=== PATIENT | male | born 1945 | race Caucasian/White ===

== ENCOUNTER 2016-11-07 20:08 | Emergency (ER) | payer OTHER ==
[~2016-11-07] VITALS: Ht 180.3 cm; Wt 95.1 kg
[~2016-11-07 20:08] MED LIST: CIPRO500 MG PO; METFORMIN HCL1000 MG PO; MULTIVITAMIN1 EAC2 PO; NOVOLIN N100 UNITS/ SC; PEN-VEE K,VEET500 MG PO; PRAVASTATIN SOD80 MG PO; RELION GLUCOSE PO; ST. JOSEPH ASPI81 MG PO
[2016-11-07 20:19] VITALS: BP 135/69
[2016-11-07 20:45] LABS: HEMATOCRIT 35.8 % (38.0-50.0); MCH 31.6 PG (29.0-34.0); MCHC 32.4 G/DL (30.0-36.0); MCV 97.5 FL (86-99); MEAN PLAT.VOLUME 10.5 uM^3 (9.0-12.4); PLATELET COUNT 152 K/uL (156-360); RBC DIS.WIDTH-CV 13.1 % (11.8-14.6); RBC DIS.WIDTH-SD 46.5 % (39-53); RED BLOOD COUNT 3.67 M/uL (4.00-5.50)
[2016-11-07 20:47] LABS: WHITE BLOOD COUNT 10.4 K/uL (4.1-10.2)
[2016-11-07 20:55] LABS: CHLORIDE 99 mEq/L (99-109); POTASSIUM 4.9 mEq/L (3.7-5.4); SODIUM 135 mEq/L (136-147)
[2016-11-07 20:56] LABS: GLUCOSE 317 mg/dL (70-99)
[2016-11-07 20:58] LABS: ANION GAP 14 MEQ/L (2-14)
[2016-11-07 21:00] LABS: GFR ESTIMATE (CALCULATED) 58 mL/min/
[2016-11-07 21:01] LABS: UREA NITROGEN (BUN) 15 mg/dL (9-23)
[2016-11-07] MEDS ORDERED: DIPROSONE 0.05%15 GM TP (21:53)
== END 2016-11-07 22:08 | disposition home or self-care (01) ==
LOC: EME 20:08
PROVIDERS: Emergency Medicine
DX: S30.811A Abrasion of abdominal wall, initial encounter (principal); L30.9 Dermatitis, unspecified; H91.3 Deaf nonspeaking, not elsewhere classified
CPT/HCPCS: 80048; 85027; 86900; 86901; 99281; 99284

== ENCOUNTER 2016-12-08 20:56 | Inpatient (IN) | payer OTHER ==
[~2016-12-08] VITALS: Ht 182.9 cm; Wt 89.6 kg
[~2016-12-08 20:56] MED LIST changes: +DIPROSONE 0.05%15 GM TP
[2016-12-08 23:07] LABS: MCHC 32.4 G/DL (30.0-36.0); MCV 95.8 FL (86-99); RBC DIS.WIDTH-CV 13.2 % (11.8-14.6); RBC DIS.WIDTH-SD 47.2 % (39-53); RED BLOOD COUNT 3.55 M/uL (4.00-5.50); WHITE BLOOD COUNT 6.9 K/uL (4.1-10.2)
[2016-12-08 23:18] LABS: CHLORIDE 97 mEq/L (99-109); POTASSIUM 4.7 mEq/L (3.7-5.4); SODIUM 133 mEq/L (136-147)
[2016-12-08 23:20] LABS: GLUCOSE 247 mg/dL (70-99)
[2016-12-08 23:21] LABS: ANION GAP 11 MEQ/L (2-14)
[2016-12-08 23:24] LABS: GFR ESTIMATE (CALCULATED) > 59 mL/min/
[2016-12-08 23:25] LABS: UREA NITROGEN (BUN) 21 mg/dL (9-23)
[2016-12-08 23:28] LABS: TROP-I INTERPRETATION NEGATIVE; TROPONIN-I < 0.01 ng/mL (0.0-0.30)
[2016-12-08 23:41] LABS: INFLUENZA A VIRAL ANTIGEN NEGATIVE; INFLUENZA B VIRAL ANTIGEN NEGATIVE
[2016-12-08 23:46] LABS: ABS NEUTROPHIL COUNT 4.8; BAND NEUTROPHILS 12.4 % (0-8.0); EOSINOPHIL ABS CT 0; INSTRUMENT ABS NEUTROPHIL CT 4.6 K/uL; LYMPHOCYTES 17.7 % (15.0-45.0); MEAN PLAT.VOLUME 10.2 uM^3 (9.0-12.4); NUCLEATED RBC'S 0.9; PLATELET COUNT 78 K/uL (156-360); SEG.NEUTROPHILS 57.5 % (46.0-76.0)
[2016-12-09] VITALS (8 sets, daily range): BP systolic 70–116; BP diastolic 40–65
[2016-12-09 01:18] LABS: HDL CHOLESTEROL 34 MG/DL (Desirable>=40); LDL CHOLESTEROL 66 mg/dL (Desirable<100); NON-HDL CHOLESTEROL 97 mg/dL (Desirable<160); TOTAL CHOLESTEROL 131 mg/dL (Desirable<200); TRIGLYCERIDES 155 MG/DL (Normal: <150)
[2016-12-09 05:03] LABS: ADD MIUA? YES; BILIRUBIN NEGATIVE; BLOOD MODERATE; COLOR YELLOW ((YELLOW)); GLUCOSE (STRIP) >=500; KETONES 80; LEUKOCYTES TRACE; NITRITE NEGATIVE; PROTEIN (STRIP) 30; UROBILINOGEN 0.2 MG/DL (0.2-1.0)
[2016-12-09 05:08] LABS: BACTERIA NONE SEEN /HPF; EPITHELIAL CELLS NONE SEEN /HPF; MUCUS NONE SEEN /LPF; RED BLOOD CELLS 15-20 /HPF (0-5); UCUL ADDED? NO; WHITE BLOOD CELLS 15-20 /HPF (0-5)
[2016-12-09 05:20] LABS: SPECIFIC GRAVITY 1.072 (1.000-1.030)
[2016-12-09 05:22] LABS: BICARBONATE 25.1 mEq/L (22-26); CARBOXY HGB 1.3 % (0-5); METHEMOGLOBIN 0.7 % (0-1.5); PCO2 33 mm Hg (35-45); PO2 58 mm Hg (80-100); SITE RR; pH 7.49 (7.35-7.45)
[2016-12-09 05:23] LABS: COMMENTS - BLOOD GASES A+C+; DEVICE NCHH; FI02 100 %; O2 FLOW 70 L/MIN; TOTAL RESP RATE 26 resp/min
[2016-12-09 07:18] LABS: INTERNAL CONTROL VALID? YES
[2016-12-09 08:55] LABS: HEMATOCRIT 28.8 % (38.0-50.0); MCH 31.9 PG (29.0-34.0); MCHC 32.6 G/DL (30.0-36.0); MCV 97.6 FL (86-99); MEAN PLAT.VOLUME 10.8 uM^3 (9.0-12.4); PLATELET COUNT 63 K/uL (156-360); RBC DIS.WIDTH-CV 13.2 % (11.8-14.6); RBC DIS.WIDTH-SD 47.7 % (39-53); RED BLOOD COUNT 2.95 M/uL (4.00-5.50)
[2016-12-09 09:23] LABS: ABS NEUTROPHIL COUNT 1.1; ANION GAP 10 MEQ/L (2-14); ANISOCYTOSIS 2+; BAND NEUTROPHILS 22.4 % (0-8.0); CHLORIDE 103 MEQ/L (99-109); EOSINOPHIL ABS CT 0; GFR ESTIMATE (CALCULATED) > 59 mL/min/; GLUCOSE 265 mg/dL (70-99); INSTRUMENT ABS NEUTROPHIL CT 1.3 K/uL; LYMPHOCYTES 26.2 % (15.0-45.0); METAMYELOCYTES 8.4 %; MYELOCYTES 0.9 %; PLAT.SUFFICIENCY DECREASED; POIKILOCYTOSIS 1+; POTASSIUM 3.8 MEQ/L (3.7-5.4); SAMPLE HEMOLYSIS CHECK 0; SAMPLE ICTERIC CHECK 0; SAMPLE LIPEMIA CHECK 0; SODIUM 136 MEQ/L (136-147); UREA NITROGEN (BUN) 19 mg/dL (9-23)
[2016-12-09 09:30] LABS: POINT-OF-CARE METER ID UU13113731
[2016-12-09 09:30] LABS: METH RESISTANT S AUREUS PCR NEGATIVE (NEGATIVE); PROBE CHECK PASS; SPECIMEN PROCESSING CONTROL PASS
[2016-12-09 09:38] LABS: SEG.NEUTROPHILS 32.7 % (46.0-76.0)
[2016-12-09 12:43] LABS: POINT-OF-CARE METER ID UU13113731
[2016-12-09 17:22] LABS: ABS NEUTROPHIL COUNT 1.6; ATYPICAL LYMPHOCYTE 0.9 %; BAND NEUTROPHILS 29.8 % (0-8.0); EOSINOPHIL ABS CT 0; HEMATOCRIT 28.5 % (38.0-50.0); LYMPHOCYTES 24.6 % (15.0-45.0); MCH 31.8 PG (29.0-34.0); MCV 96.3 FL (86-99); MEAN PLAT.VOLUME 10.7 uM^3 (9.0-12.4); METAMYELOCYTES 11.4 %; MYELOCYTES 1.7 %; PLAT.SUFFICIENCY DECREASED; PLATELET COUNT 72 K/uL (156-360); RBC DIS.WIDTH-CV 13.3 % (11.8-14.6); RBC DIS.WIDTH-SD 47.2 % (39-53); RED BLOOD COUNT 2.96 M/uL (4.00-5.50); SEG.NEUTROPHILS 20.2 % (46.0-76.0); SMUDGE CELLS 8.8; TOX.VACUOLIZATION 1+
[2016-12-09 17:25] LABS: WHITE BLOOD COUNT 3.1 K/uL (4.1-10.2)
[2016-12-09 17:26] LABS: POINT-OF-CARE METER ID UU13113731
[2016-12-09 22:22] LABS: POINT-OF-CARE METER ID UU13113731
[2016-12-10] VITALS (7 sets, daily range): BP systolic 104–113; BP diastolic 56–61
[2016-12-10 06:35] LABS: POINT-OF-CARE METER ID UU13113731
[2016-12-10] MEDS ORDERED: PRAVASTATIN SOD80 MG PO (07:48)
[2016-12-10] MEDS ORDERED: PROAMATINE5 MG PO (07:49)
[2016-12-10 09:27] LABS: HEMATOCRIT 25.6 % (38.0-50.0); MCH 31.7 PG (29.0-34.0); MCHC 32.8 G/DL (30.0-36.0); MCV 96.6 FL (86-99); MEAN PLAT.VOLUME 11.2 uM^3 (9.0-12.4); PLATELET COUNT 69 K/uL (156-360); RBC DIS.WIDTH-CV 13.4 % (11.8-14.6); RBC DIS.WIDTH-SD 48.3 % (39-53); RED BLOOD COUNT 2.65 M/uL (4.00-5.50)
[2016-12-10 09:28] LABS: WHITE BLOOD COUNT 5.3 K/uL (4.1-10.2)
[2016-12-10 09:40] LABS: ALKALINE PHOSPHATASE 40 IU/L (3-129); ANION GAP 11 MEQ/L (2-14); CHLORIDE 103 MEQ/L (99-109); GFR ESTIMATE (CALCULATED) > 59 mL/min/; GLUCOSE 253 mg/dL (70-99); SAMPLE HEMOLYSIS CHECK 0; SAMPLE ICTERIC CHECK 0; SAMPLE LIPEMIA CHECK 0; SODIUM 136 MEQ/L (136-147); TOTAL BILIRUBIN 0.8 MG/DL (0.0-1.0); UREA NITROGEN (BUN) 20 mg/dL (9-23)
[2016-12-10 09:46] LABS: ABS NEUTROPHIL COUNT 4.1; ANISOCYTOSIS 1+; ATYPICAL LYMPHOCYTE 0.9 %; BAND NEUTROPHILS 24.3 % (0-8.0); EOSINOPHIL ABS CT 0; INSTRUMENT ABS NEUTROPHIL CT 3.6 K/uL; LYMPHOCYTES 18.9 % (15.0-45.0); MACROCYTES 1+; NUCLEATED RBC'S 0.9; PLAT.SUFFICIENCY DECREASED
[2016-12-10 10:10] LABS: SEG.NEUTROPHILS 52.3 % (46.0-76.0)
[2016-12-10 12:32] LABS: POINT-OF-CARE METER ID UU13113731
[2016-12-10 18:02] LABS: POINT-OF-CARE METER ID UU13113731
[2016-12-11] VITALS (9 sets, daily range): BP systolic 116–127; BP diastolic 56–66
[2016-12-11 01:03] LABS: POINT-OF-CARE METER ID UU14174217
[2016-12-11 05:04] LABS: CHLORIDE 105 mEq/L (99-109); POTASSIUM 3.8 mEq/L (3.7-5.4); SODIUM 133 mEq/L (136-147)
[2016-12-11 05:05] LABS: MAGNESIUM 1.4 mg/dL (1.3-2.7)
[2016-12-11 05:06] LABS: GLUCOSE 243 mg/dL (70-99)
[2016-12-11 05:08] LABS: ANION GAP 4 MEQ/L (2-14)
[2016-12-11 05:10] LABS: GFR ESTIMATE (CALCULATED) > 59 mL/min/
[2016-12-11 05:11] LABS: UREA NITROGEN (BUN) 20 mg/dL (9-23)
[2016-12-11 05:55] LABS: ABS NEUTROPHIL COUNT 4.6; ANISOCYTOSIS 1+; BURR CELLS 1+; EOSINOPHIL ABS CT 0; HEMATOCRIT 24.9 % (38.0-50.0); INSTRUMENT ABS NEUTROPHIL CT 3.8 K/uL; LYMPHOCYTES 16.1 % (15.0-45.0); MACROCYTES 1+; MCH 30.8 PG (29.0-34.0); MCHC 32.1 G/DL (30.0-36.0); MCV 95.8 FL (86-99); OVALOCYTES 1+; PLAT.SUFFICIENCY DECREASED; PLATELET COUNT 86 K/uL (156-360); POIKILOCYTOSIS 1+; RBC DIS.WIDTH-CV 13.6 % (11.8-14.6); RBC DIS.WIDTH-SD 48.1 % (39-53); WHITE BLOOD COUNT 5.7 K/uL (4.1-10.2)
[2016-12-11 06:16] LABS: BAND NEUTROPHILS 1.8 % (0-8.0); SEG.NEUTROPHILS 78.5 % (46.0-76.0)
[2016-12-11] MEDS ORDERED: LEVEMIR FL100 UNIT/1 SC (07:20)
[2016-12-11 09:53] LABS: BASE EXCESS 1.6 mEq/L (-3 to +3); BICARBONATE 25.8 mEq/L (22-26); CARBOXY HGB 1.4 % (0-5); COMMENTS - BLOOD GASES C+; DEVICE VENT; FI02 35 %; METHEMOGLOBIN 1.3 % (0-1.5); MODE SPONT; PCO2 38 mm Hg (35-45); PO2 66 mm Hg (80-100); SITE A LINE; pH 7.44 (7.35-7.45)
[2016-12-11 09:54] LABS: PEEP 5 CM/H20; PRES. SUPPORT 10 CM/H2O; TOTAL RESP RATE 26 resp/min
[2016-12-11 12:52] LABS: POINT-OF-CARE METER ID UU14174217
[2016-12-11 18:19] LABS: POINT-OF-CARE METER ID UU14174217
[2016-12-12 00:07] LABS: POINT-OF-CARE METER ID UU14174217
[2016-12-12 05:41] LABS: POINT-OF-CARE METER ID UU13113803
[2016-12-12 08:00] VITALS: BP 156/90
[2016-12-12 12:00] VITALS: BP 144/80
[2016-12-12 12:01] LABS: BASE EXCESS 4.4 mEq/L (-3 to +3); BICARBONATE 28.4 mEq/L (22-26); CARBOXY HGB 1.2 % (0-5); METHEMOGLOBIN 1.3 % (0-1.5); PCO2 39 mm Hg (35-45); PO2 68 mm Hg (80-100); pH 7.47 (7.35-7.45)
[2016-12-12 12:02] LABS: COMMENTS - BLOOD GASES A+C+; DEVICE VENT; FI02 40 %; MODE SPONT; PEEP 5 CM/H20; PRES. SUPPORT 10 CM/H2O; SITE LR; TOTAL RESP RATE 28 resp/min
[2016-12-12 12:10] LABS: POINT-OF-CARE METER ID UU13113803
[2016-12-12 13:06] LABS: ANION GAP 11 MEQ/L (2-14); CHLORIDE 97 MEQ/L (99-109); GFR ESTIMATE (CALCULATED) > 59 mL/min/; GLUCOSE 305 mg/dL (70-99); MAGNESIUM 1.6 mg/dl (1.3-2.7); POTASSIUM 3.6 MEQ/L (3.7-5.4); SAMPLE HEMOLYSIS CHECK 0; SAMPLE ICTERIC CHECK 0; SAMPLE LIPEMIA CHECK 0; SODIUM 132 MEQ/L (136-147); UREA NITROGEN (BUN) 19 mg/dL (9-23)
[2016-12-12 16:00] VITALS: BP 132/75
[2016-12-12 20:00] VITALS: BP 167/83
[2016-12-12 21:48] LABS: Heparin Induced Plt Ab Negative (Negative)
[2016-12-13] VITALS (16 sets, daily range): BP systolic 88–188; BP diastolic 50–103
[2016-12-13 01:33] LABS: POINT-OF-CARE METER ID UU13113731
[2016-12-13 02:44] LABS: BASE EXCESS 6.1 mEq/L (-3 to +3); BICARBONATE 29.5 mEq/L (22-26); CARBOXY HGB 1.4 % (0-5); COMMENTS - BLOOD GASES A+; DEVICE 980; FI02 50 %; MECHANICAL RATE 16 resp/min; METHEMOGLOBIN 1.4 % (0-1.5); MODE SIMV; PCO2 37 mm Hg (35-45); PEEP 5 CM/H20; PO2 58 mm Hg (80-100); PRES. SUPPORT 12 CM/H2O; SITE ALINE; TIDAL VOLUME 400 ML; TOTAL RESP RATE 38 resp/min; pH 7.51 (7.35-7.45)
[2016-12-13 05:29] LABS: BASE EXCESS 4.7 mEq/L (-3 to +3); BICARBONATE 28.2 mEq/L (22-26); CARBOXY HGB 1.2 % (0-5); COMMENTS - BLOOD GASES C+; METHEMOGLOBIN 1.3 % (0-1.5); PCO2 37 mm Hg (35-45); PO2 66 mm Hg (80-100); SITE RR ALINE; pH 7.49 (7.35-7.45)
[2016-12-13 05:30] LABS: DEVICE VENT; FI02 50 %; MECHANICAL RATE 20 resp/min; MODE A/C; PEEP 5 CM/H20; TIDAL VOLUME 400 ML; TOTAL RESP RATE 35 resp/min
[2016-12-13 06:20] LABS: POINT-OF-CARE METER ID UU13113731
[2016-12-13 06:47] LABS: EOSINOPHIL (%) 0.2 % (0-5); HEMATOCRIT 30.2 % (38.0-50.0); IMMATURE GRANULOCYTE (%) 1.7 % (0.0-0.7); IMMATURE GRANULOCYTE COUNT 0.1 K/uL; INSTRUMENT ABS NEUTROPHIL CT 6.1 K/uL; LYMPHOCYTE COUNT 0.6 K/uL (1.0-2.8); MCH 31.1 PG (29.0-34.0); MCHC 32.5 G/DL (30.0-36.0); MCV 95.9 FL (86-99); MEAN PLAT.VOLUME 10.8 uM^3 (9.0-12.4); MONOCYTE (%) 16.3 % (3-12); MONOCYTE COUNT 1.3 K/uL (0-0.8); NEUTROPHIL (%) 73.9 % (45-76); NEUTROPHIL COUNT 6.1 K/uL (1.8-6.4); RBC DIS.WIDTH-CV 13.6 % (11.8-14.6); RBC DIS.WIDTH-SD 47.5 % (39-53)
[2016-12-13 06:50] LABS: PLATELET COUNT 157 K/uL (156-360); RED BLOOD COUNT 3.15 M/uL (4.00-5.50); WHITE BLOOD COUNT 8.2 K/uL (4.1-10.2)
[2016-12-13 07:13] LABS: ANION GAP 11 MEQ/L (2-14); CHLORIDE 100 MEQ/L (99-109); GFR ESTIMATE (CALCULATED) > 59 mL/min/; GLUCOSE 272 mg/dL (70-99); MAGNESIUM 1.8 mg/dl (1.3-2.7); SAMPLE HEMOLYSIS CHECK 0; SAMPLE ICTERIC CHECK 0; SAMPLE LIPEMIA CHECK 0; SODIUM 136 MEQ/L (136-147); UREA NITROGEN (BUN) 20 mg/dL (9-23)
[2016-12-13 07:15] LABS: ALKALINE PHOSPHATASE 75 IU/L (3-129); POTASSIUM 4.4 MEQ/L (3.7-5.4); TOTAL BILIRUBIN 0.5 MG/DL (0.0-1.0)
[2016-12-13 11:39] LABS: BASE EXCESS 2.7 mEq/L (-3 to +3); BICARBONATE 26.1 mEq/L (22-26); CARBOXY HGB 1.2 % (0-5); METHEMOGLOBIN 1.4 % (0-1.5); PCO2 35 mm Hg (35-45); pH 7.48 (7.35-7.45)
[2016-12-13 11:40] LABS: COMMENTS - BLOOD GASES C+; DEVICE VENTILATOR; FI02 50 %; PEEP 5 CM/H20; PO2 84 mm Hg (80-100); SITE A LINE
[2016-12-14] VITALS (7 sets, daily range): BP systolic 121–156; BP diastolic 69–86
[2016-12-14 07:10] LABS: HEMATOCRIT 31.6 % (38.0-50.0); MCHC 32.9 G/DL (30.0-36.0); MCV 97.2 FL (86-99); MEAN PLAT.VOLUME 11.2 uM^3 (9.0-12.4); PLATELET COUNT 175 K/uL (156-360); RBC DIS.WIDTH-CV 14.2 % (11.8-14.6); RBC DIS.WIDTH-SD 50.4 % (39-53); RED BLOOD COUNT 3.25 M/uL (4.00-5.50); WHITE BLOOD COUNT 9.1 K/uL (4.1-10.2)
[2016-12-14 07:57] LABS: ANION GAP 13 MEQ/L (2-14); CHLORIDE 103 MEQ/L (99-109); POTASSIUM 4.5 MEQ/L (3.7-5.4); SAMPLE HEMOLYSIS CHECK 0; SAMPLE ICTERIC CHECK 0; SAMPLE LIPEMIA CHECK 0; SODIUM 138 MEQ/L (136-147)
[2016-12-14 08:09] LABS: GFR ESTIMATE (CALCULATED) 58 mL/min/; GLUCOSE 542 mg/dL (70-99); MAGNESIUM 2.1 mg/dl (1.3-2.7); UREA NITROGEN (BUN) 40 mg/dL (9-23)
[2016-12-14 09:12] LABS: CREATINE KINASE 11 IU/L (1-294)
[2016-12-14 13:43] LABS: BASE EXCESS 1.3 mEq/L (-3 to +3); BICARBONATE 24.9 mEq/L (22-26); CARBOXY HGB 1.5 % (0-5); METHEMOGLOBIN 1.4 % (0-1.5); PCO2 35 mm Hg (35-45); PO2 62 mm Hg (80-100); pH 7.46 (7.35-7.45)
[2016-12-14 13:44] LABS: COMMENTS - BLOOD GASES C+; DEVICE CAM; FI02 60 %; SITE A LINE; TOTAL RESP RATE 21 resp/min
[2016-12-14 20:46] LABS: CHLORIDE 109 mEq/L (99-109); SODIUM 142 mEq/L (136-147)
[2016-12-14 20:47] LABS: POTASSIUM 3.5 mEq/L (3.7-5.4)
[2016-12-14 20:48] LABS: MAGNESIUM 1.9 mg/dL (1.3-2.7)
[2016-12-14 20:50] LABS: ANION GAP 8 MEQ/L (2-14)
[2016-12-14 20:53] LABS: GFR ESTIMATE (CALCULATED) > 59 mL/min/
[2016-12-14 20:54] LABS: UREA NITROGEN (BUN) 43 mg/dL (9-23)
[2016-12-14 21:00] LABS: GLUCOSE 160 mg/dL (70-99)
[2016-12-15 06:45] LABS: HEMATOCRIT 28.9 % (38.0-50.0); MCH 30.8 PG (29.0-34.0); MCHC 31.8 G/DL (30.0-36.0); MCV 96.7 FL (86-99); MEAN PLAT.VOLUME 10.7 uM^3 (9.0-12.4); PLATELET COUNT 172 K/uL (156-360); RBC DIS.WIDTH-CV 14.1 % (11.8-14.6); RBC DIS.WIDTH-SD 49.7 % (39-53); RED BLOOD COUNT 2.99 M/uL (4.00-5.50); WHITE BLOOD COUNT 10.3 K/uL (4.1-10.2)
[2016-12-15 07:46] LABS: ANION GAP 11 MEQ/L (2-14); CHLORIDE 104 MEQ/L (99-109); GFR ESTIMATE (CALCULATED) > 59 mL/min/; GLUCOSE 129 mg/dL (70-99); MAGNESIUM 1.9 mg/dl (1.3-2.7); SAMPLE HEMOLYSIS CHECK 0; SAMPLE ICTERIC CHECK 0; SAMPLE LIPEMIA CHECK 0; SODIUM 140 MEQ/L (136-147); UREA NITROGEN (BUN) 51 mg/dL (9-23)
[2016-12-15 09:20] LABS: POINT-OF-CARE METER ID UU13113803; POINT-OF-CARE USER ID 606021424
[2016-12-15 13:19] LABS: POINT-OF-CARE METER ID UU13113803; POINT-OF-CARE USER ID 606021424
[2016-12-15 16:09] LABS: POINT-OF-CARE METER ID UU14174217
[2016-12-15 16:09] LABS: POINT-OF-CARE METER ID UU14174217
[2016-12-15 16:09] LABS: POINT-OF-CARE METER ID UU14174217
[2016-12-15 16:09] LABS: POINT-OF-CARE METER ID UU14174217
[2016-12-15 16:13] LABS: POINT-OF-CARE METER ID UU14174217
[2016-12-15 16:13] LABS: POINT-OF-CARE METER ID UU14174217
[2016-12-15 16:23] LABS: POINT-OF-CARE METER ID UU13113731
[2016-12-15 17:20] LABS: POINT-OF-CARE METER ID UU14162636; POINT-OF-CARE USER ID 606021424
[2016-12-15 18:00] VITALS: BP 121/64
[2016-12-15 18:01] LABS: UFH SRA Result Negative (Negative)
[2016-12-15 20:00] VITALS: BP 104/52
[2016-12-15 22:46] LABS: POINT-OF-CARE METER ID UU14162636
[2016-12-16] VITALS (7 sets, daily range): BP systolic 0–140; BP diastolic 0–78
[2016-12-16 07:01] LABS: HEMATOCRIT 27.7 % (38.0-50.0); MCH 31.2 PG (29.0-34.0); MCHC 32.1 G/DL (30.0-36.0); MCV 97.2 FL (86-99); PLATELET COUNT 156 K/uL (156-360); RBC DIS.WIDTH-CV 13.8 % (11.8-14.6); RBC DIS.WIDTH-SD 48.8 % (39-53); RED BLOOD COUNT 2.85 M/uL (4.00-5.50); WHITE BLOOD COUNT 8.6 K/uL (4.1-10.2)
[2016-12-16 07:16] LABS: ANION GAP 9 MEQ/L (2-14); CHLORIDE 107 MEQ/L (99-109); GFR ESTIMATE (CALCULATED) > 59 mL/min/; POTASSIUM 4.1 MEQ/L (3.7-5.4); SAMPLE HEMOLYSIS CHECK 0; SAMPLE ICTERIC CHECK 0; SAMPLE LIPEMIA CHECK 0; SODIUM 141 MEQ/L (136-147); UREA NITROGEN (BUN) 35 mg/dL (9-23)
[2016-12-16 07:17] LABS: GLUCOSE 89 mg/dL (70-99)
[2016-12-16 12:09] LABS: POINT-OF-CARE METER ID UU13113731
[2016-12-16 16:41] LABS: POINT-OF-CARE METER ID UU14162636
[2016-12-16 23:20] LABS: POINT-OF-CARE METER ID UU14174217
[2016-12-17] VITALS: BP 110/74
[2016-12-17 04:00] VITALS: BP 125/72
[2016-12-17 05:00] LABS: HEMATOCRIT 27.4 % (38.0-50.0); MCH 31.1 PG (29.0-34.0); MCHC 32.5 G/DL (30.0-36.0); MCV 95.8 FL (86-99); MEAN PLAT.VOLUME 10.3 uM^3 (9.0-12.4); PLATELET COUNT 163 K/uL (156-360); RBC DIS.WIDTH-CV 13.4 % (11.8-14.6); RBC DIS.WIDTH-SD 46.9 % (39-53); RED BLOOD COUNT 2.86 M/uL (4.00-5.50); WHITE BLOOD COUNT 6.5 K/uL (4.1-10.2)
[2016-12-17 05:18] LABS: CHLORIDE 104 mEq/L (99-109); POTASSIUM 3.8 mEq/L (3.7-5.4); SODIUM 137 mEq/L (136-147)
[2016-12-17 05:19] LABS: MAGNESIUM 1.7 mg/dL (1.3-2.7)
[2016-12-17 05:21] LABS: ANION GAP 7 MEQ/L (2-14)
[2016-12-17 05:22] LABS: GLUCOSE 135 mg/dL (70-99)
[2016-12-17 05:24] LABS: GFR ESTIMATE (CALCULATED) > 59 mL/min/
[2016-12-17 05:25] LABS: UREA NITROGEN (BUN) 22 mg/dL (9-23)
[2016-12-17 08:00] VITALS: BP 120/71
[2016-12-17] MEDS ORDERED: LEVEMIR100 UNIT/2 SC (11:21)
[2016-12-17] MEDS ORDERED: LINEZOLID600 MG PO (11:21)
[2016-12-17] MEDS ORDERED: ANTISEPTIC SKI237 ML TP (11:30)
[2016-12-17] MEDS ORDERED: VENTOLIN HFA18 GM IH (11:30)
[2016-12-17] MEDS ORDERED: BACTROBAN NASAL1 G1 BOTH NARES (11:30)
[2016-12-17] MEDS ORDERED: METFORMIN HCL1000 MG PO (11:53)
[2016-12-17] MEDS ORDERED: PROAMATINE5 MG PO (11:53)
[2016-12-17] MEDS ORDERED: DOCUSATE SODIU100 MG PO (11:53)
[2016-12-17] MEDS ORDERED: PRAVASTATIN SOD80 MG PO (11:53)
[2016-12-17] MEDS ORDERED: ST. JOSEPH ASPI81 MG PO (11:53)
[2016-12-17] MEDS ORDERED: MULTIVITAMIN1 EAC2 PO (11:53)
[2016-12-17 12:00] VITALS: BP 139/67
[2016-12-17] MEDS ORDERED: BACTRIM,SEPT1 TABLET PO (12:18)
[2016-12-17 13:19] LABS: POINT-OF-CARE METER ID UU13113803
== END 2016-12-17 14:55 | disposition home health service (06) | DRG 870 ==
LOC: EME 20:56 → 4WEST 12-09 03:51 → EDOF 12-09 03:51 → 4WEST 12-09 07:21
PROVIDERS: Emergency Medicine; Hospitalist; Internal Medicine; Internal Medicine Critical Care Medicine; Obstetrics & Gynecology; Specialist
DX: A41.02 Sepsis due to Methicillin resistant Staphylococcus aureus (principal); J15.212 Pneumonia due to Methicillin resistant Staphylococcus aureus; R65.21 Severe sepsis with septic shock; J96.01 Acute respiratory failure with hypoxia; E87.2 Acidosis; G93.41 Metabolic encephalopathy; E87.1 Hypo-osmolality and hyponatremia; E11.51 Type 2 diabetes mellitus with diabetic peripheral angiopathy without gangrene; D69.59 Other secondary thrombocytopenia; D63.8 Anemia in other chronic diseases classified elsewhere; I10 Essential (primary) hypertension; H91.93 Unspecified hearing loss, bilateral; K21.9 Gastro-esophageal reflux disease without esophagitis; Z79.4 Long term (current) use of insulin; Z95.820 Peripheral vascular angioplasty status with implants and grafts; Z89.411 Acquired absence of right great toe; Z89.421 Acquired absence of other right toe(s)
CPT/HCPCS: 31500; 36600; 36620; 70450; 71010; 71275; 74230; 80048; 80048 91; 80053; 80061; 80202; 81003; 82550; 82803; 82948; 83605; 83735; 83880; 84100; 84484; 84520; 85025; 85025 91; 85027; 85384; 85730; 86022 90; 87040; 87070; 87077; 87086; 87147; 87186; 87205; 87449; 87502; 87641; 92610 GN; 92611 GN; 93005; 94002; 94003; 94640; 94640 76; 94668; 94760; 94799; 97530 GO; 99202; 99281; 99285; C1751; J0456; J0696; J1120; J1644; J1815; J1885; J1940; J1956; J2060; J2250; J2704; J3370; J3480; J7050; J7120; S0028

== ENCOUNTER 2017-01-14 19:16 | Emergency (ER) | payer OTHER ==
[~2017-01-14] VITALS: Ht 188 cm; Wt 94.0 kg
[~2017-01-14 19:16] MED LIST changes: +ANTISEPTIC SKI237 ML TP; +BACTRIM,SEPT1 TABLET PO; +BACTROBAN NASAL1 G1 BOTH NARES; +DOCUSATE SODIU100 MG PO; +LEVEMIR FL100 UNIT/1 SC; +LEVEMIR100 UNIT/2 SC; +LINEZOLID600 MG PO; +PROAMATINE5 MG PO; +VENTOLIN HFA18 GM IH
[2017-01-14 22:39] LABS: POINT-OF-CARE METER ID UU13113778
[2017-01-14] MEDS ORDERED: NORCO 5/3251 TABLET PO (22:56)
[2017-01-14] MEDS ORDERED: LIDODERM 5% P1 PATCH TD (22:56)
[2017-01-14] MEDS ORDERED: MOTRIN600 MG PO (22:56)
[2017-01-15 00:23] VITALS: BP 111/61
== END 2017-01-15 00:25 | disposition home or self-care (01) ==
LOC: EME 19:16
PROVIDERS: Physician Assistant
DX: S09.90XA Unspecified injury of head, initial encounter (principal); S16.1XXA Strain of muscle, fascia and tendon at neck level, initial encounter; S30.0XXA Contusion of lower back and pelvis, initial encounter; W01.0XXA Fall on same level from slipping, tripping and stumbling without subsequent striking against object, initial encounter; Y92.511 Restaurant or cafe as the place of occurrence of the external cause; M48.56XA Collapsed vertebra, not elsewhere classified, lumbar region, initial encounter for fracture; M48.54XA Collapsed vertebra, not elsewhere classified, thoracic region, initial encounter for fracture; M85.88 Other specified disorders of bone density and structure, other site; E11.9 Type 2 diabetes mellitus without complications; Z79.4 Long term (current) use of insulin
CPT/HCPCS: 72100; 82948; 99281; 99284; J3010

== ENCOUNTER 2017-07-04 18:26 | Emergency (ER) | payer OTHER ==
[~2017-07-04] VITALS: Ht 188 cm; Wt 90.9 kg
[~2017-07-04 18:26] MED LIST changes: +LIDODERM 5% P1 PATCH TD; +MOTRIN600 MG PO; +NORCO 5/3251 TABLET PO
[2017-07-04 19:07] LABS: HEMATOCRIT 31.4 % (38.0-50.0); MCH 32.8 PG (29.0-34.0); MCHC 33.8 G/DL (30.0-36.0); MCV 97.2 FL (86-99); MEAN PLAT.VOLUME 10.9 uM^3 (9.0-12.4); PLATELET COUNT 80 K/uL (156-360); RBC DIS.WIDTH-CV 13.4 % (11.8-14.6); RBC DIS.WIDTH-SD 48.3 % (39-53); RED BLOOD COUNT 3.23 M/uL (4.00-5.50); WHITE BLOOD COUNT 10.9 K/uL (4.1-10.2)
[2017-07-04 19:18] LABS: CHLORIDE 103 mEq/L (99-109); POTASSIUM 4.8 mEq/L (3.7-5.4); SODIUM 136 mEq/L (136-147)
[2017-07-04 19:20] LABS: GLUCOSE 170 mg/dL (70-99)
[2017-07-04 19:22] LABS: ANION GAP 8 MEQ/L (2-14)
[2017-07-04 19:24] LABS: GFR ESTIMATE (CALCULATED) > 59 mL/min/ (58.99-99999)
[2017-07-04 19:25] LABS: UREA NITROGEN (BUN) 21 mg/dL (9-23)
[2017-07-04] MEDS ORDERED: CLEOCIN300 MG PO (19:32)
[2017-07-04 19:47] VITALS: BP 98/66
== END 2017-07-04 19:51 | disposition home or self-care (01) ==
LOC: EME 18:26
PROVIDERS: Nurse Practitioner Family
DX: L03.115 Cellulitis of right lower limb (principal); K21.9 Gastro-esophageal reflux disease without esophagitis; E11.9 Type 2 diabetes mellitus without complications; Z79.4 Long term (current) use of insulin
CPT/HCPCS: 80048; 85027; 99281; 99284

== ENCOUNTER 2017-07-24 23:28 | Emergency (ER) | payer OTHER ==
[~2017-07-24] VITALS: Ht 188 cm; Wt 92.0 kg
[~2017-07-24 23:28] MED LIST changes: +CLEOCIN300 MG PO
[2017-07-25] MEDS ORDERED: KEFLEX500 MG PO (01:54)
[2017-07-25] MEDS ORDERED: PERCOCET 5/31 TABLET PO (01:54)
[2017-07-25 02:10] VITALS: BP 97/55
== END 2017-07-25 02:11 | disposition home or self-care (01) ==
LOC: EME 23:28
DX: L03.115 Cellulitis of right lower limb (principal); I87.8 Other specified disorders of veins
CPT/HCPCS: 99281; 99283